=== PATIENT | female | born 1945 | race African-American/Black ===

== ENCOUNTER 2016-06-23 20:42 | Emergency (ER) | payer MEDICARE, OTHER ==
[~2016-06-23] VITALS: Ht 170.2 cm; Wt 77.3 kg
[2016-06-23 20:45] VITALS: Ht 170.2 cm; Wt 77.3 kg
[2016-06-23] MEDS ORDERED: DIATR MEGLU/DIATRIZOATE SODIUM 120 ML BTL ONE (21:58)
--- NOTE | 2016-06-23 22:47 | ERD ---
ER Documentation Chief Complaint Date/Time DATE: 06/23/16 TIME: 22:42 Chief Complaint BIBA from [facility], Gtube replacement HPI 71-year-old female with multiple medical problems, G-tube dependent, [facility] for dysfunction of her G-tube. Part of it broke off. There was no other complaints. Patient is nonverbal and unable to give a history. ROS Limited review of systems secondary to patient being nonverbal Allergies Allergies: Coded Allergies: No Known Allergy (Unverified , 06/23/16) PMhx/Soc History of Surgery: Yes (gastrostomy) Hx Neurological Disorder: Yes (viral herpes encephalitis,epilepsy) Hx Cardiac Disorders: Yes (PVD,hyperlipidemia,HTN) Hx Psychiatric Problems: Yes (depression,dementia) Hx Miscellaneous Medical Probl: Yes (osteoarthritis,hypothyroidism,diabetes, dysphagia,rt knee contracture) Smoking Status: Unknown if ever smoked FmHx Family History: other (Unable to obtain) Physical Exam Vitals Vital Signs Date Time Temp Pulse Resp B/P Pulse Ox O2 Delivery O2 Flow Rate FiO2 06/23/16 22:06 59 20 134/83 94 Room Air 06/23/16 20:45 98.2 54 18 146/63 98 Physical Exam Const: No distress, nontoxic, drooling, eyes open Head: Atraumatic Eyes: Normal Conjunctiva ENT: Left facial droop with drooling Neck: Full range of motion. No meningismus. Resp: Clear to auscultation bilaterally Cardio: Bradycardic, regular rhythm, no murmurs Abd: Soft, non tender, non distended. G-tube in place. Normal bowel sounds Ext: No cyanosis, or edema. Muscle atrophy in all extremities Neur: Awake and alert, nonverbal, contractures and extremities Results 24 hrs Current Medications Medications (Trade) Dose Ordered Sig/Jeremy Route PRN Reason Start Time Stop Time Status Last Admin Dose Admin Diatrizoate Meglum/ Diatrizoate Sod (Gastrografin 66-10 Solution) 120 ml STK-MED ONCE .ROUTE 06/23/16 21:58 06/23/16 21:59 DC Procedures/MDM G-tube Insertion by me: Sterile technique, local prep and lubrication, time out performed. Location: Epigastrum Device: 18 omani G-tube Technique: Heidy pressure with twisting motion. Balloon inflation Results: Gastric contents expressed. X-ray Abdomen 1V Interpreted by me: Free Air: None Bowel Gas: Nonspecific Contrast: Intraluminal Patient discharged back to her facility in stable condition. Departure Diagnosis: Primary Impression: Encounter for feeding tube placement Condition: Stable Patient Instructions: Feeding Tube Replacement DAREK ROBERTS MD Jun 23, 2016 22:47
--- NOTE | 2016-06-23 23:07 | RADRPT ---
PROCEDURE: XR Abdomen. CLINICAL INDICATION: Abdominal pain. TECHNIQUE: AP abdomen x-ray. COMPARISON: There are no similar studies submitted for comparison. FINDINGS: A percutaneous gastrostomy tube tip is within the stomach. There is contrast within the stomach. N o extravasation of contrast is seen. There is no evidence of bowel obstruction.There are no definit e densities overlying the kidneys and ureters. IMPRESSION: Percutaneous gastrostomy tube tip in the stomach. RPTAT: HIKT .Gautam Barr MD, Date Time Electronically viewed and signed by .Gautam Barr MD, on 06/23/2016 23:06 .T/
[2016-06-23 23:20] VITALS: BP 135/75; PULSE 59; RESP 20; TEMP 98.9
== END 2016-06-23 23:23 | disposition home or self-care (01) ==
LOC: E/R 20:42
DX: Z43.1 Encounter for attention to gastrostomy (principal); I10 Essential (primary) hypertension; E03.9 Hypothyroidism, unspecified; E11.9 Type 2 diabetes mellitus without complications
CPT/HCPCS: 74000